=== PATIENT | male | born 1960 | race Caucasian/White ===

== ENCOUNTER 2019-04-02 23:33 | Emergency (ER) | payer MEDICAID ==
--- NOTE | 2019-04-03 00:14 | ED Physician Chart ---
ED Chief Complaint/HPI - Patient Information Date Seen:: 04/03/19 Time Seen:: 00:09 Chief Complaint:: hypoglycemia History of Present Illness:: 59 yr old male with abd pain several days no vomitiing pt refuses help Allergies:: Allergies Allergy/AdvReac Type Severity Reaction Status Date / Time No Known Allergies Allergy Verified 04/02/19 23:43 Vitals:: Vital Signs - 8 hr 04/02/19 23:40 Temp 97.9 F HR 84 RR 20 BP 189/98 O2 Sat % 99 ED Review of Systems - Review of Systems General/Constitutional: No fever Skin: Skin lesions Head: Headache Eyes: No loss of vision ENT: No earache Neck: No neck pain Cardio Vascular: No chest pain Pulmonary: No SOB GI: No nausea, No vomiting, Pain G/U: No dysuria Musculoskeletal: No bone or joint pain Endocrine: No polyuria Psychiatric: No prior psych history Hematopoietic: No bruising Allergic/Immuno: No urticaria ED Past Medical History - Past Medical History Past Medical History: Other (gallstones) Family Medical History - Family Member Mother History Unknown: Yes ED Physical Exam - Physical Examination General/Constitutional: Well-developed, well-nourished Other Gen/Cons comments:: much abd pain ruq Head: Atraumatic Eyes: Lids, conjuctiva normal Skin: Nl inspection ENMT: External ears, nose nl Neck: Nontender Respiratory: Nl effort/Exclusion Cardio Vascular: RRR Other GI comments:: much tenderness ruq : No CVA tenderness Extremities: normal strength in all extremities Neuro/Psych: Alert/oriented ED Assessment - Assessment General Assessment: gallstones abd pain ED Septic Shock - . Is Septic Shock (SBP<90, OR Lactate>4 mmol\L) present?: No - <6hrs of presentation: Vital Signs: Vital Signs - 8 hr 04/02/19 23:40 Temp 97.9 F HR 84 RR 20 BP 189/98 O2 Sat % 99 ED Reassessment (Disposition) - Reassessment Reassessment:: billiary colic - Diagnosis Diagnosis:: abd pain - Patient Disposition Discharge/Transfer:: Home Condition at Disposition:: Stable
[2019-04-03] MEDS ORDERED: Morphine Sulfate 4 mg/mL 1mL Syr ONE (00:17)
[2019-04-03] MEDS ORDERED: Morphine Sulfate 4 mg/mL 1mL Syr IVP STA (00:19)
[2019-04-03] MEDS ORDERED: Lactated Ringer 1,000 ML IV SCH (00:30)
[2019-04-03] MEDS ORDERED: cefTRIAXone 2 GM in Sodium Chloride 0.9% 100 ML IV SCH (00:30)
[2019-04-03 00:35] LABS: % BASOPHILS 0.6 % (0.0-2.0); % EOSINOPHILS 5.9 % (0.0-5.0); % LYMPHOCYTES 24.8 % (20.0-50.0); % MONOCYTES 6.9 % (2.0-10.0); % NEUTROPHILS 61.8 % (40.0-80.0); EOSINOPHILE ABSOLUTE 0.5 Th/cmm (0.1-0.4); HEMATOCRIT 42.9 % (41.0-60); HEMOGLOBIN 13.9 gm/dL (12-16); MEAN CELL VOLUME 91.6 fl (80-99); MEAN CORPUSCULAR HEMOGLOBIN 29.7 pg (26.0-30.0); MEAN CORPUSCULAR HGB CONC 32.4 pg (28.0-36.0); MONOCYTE ABSOLUTE 0.6 Th/cmm (0.3-1.0); PLATELET COUNT 250 Th/cmm (150-400); RED BLOOD COUNT 4.68 Mil/cmm (4.30-5.70); RED CELL DISTRIBUTION WIDTH 13.2 % (11.5-20.0); WHITE BLOOD COUNT 8.1 Th/cmm (4.8-10.8)
[2019-04-03 00:44] LABS: ALB/GLOB RATIO 1.2 (1.0-1.8); ALBUMIN 3.9 gm/dL (4.2-5.5); ALKALINE PHOSPHATASE 62 U/L (34-104); AMYLASE SERUM 52 U/L (29-103); ANION GAP 11.5 (7.0-16.0); BILIRUBIN,TOTAL 0.6 mg/dL (0.3-1.0); BUN - UREA NITROGEN 17 mg/dL (7-25); CALCIUM SERUM 8.9 mg/dL (8.6-10.3); CARBON DIOXIDE 26.7 mEq/L (21.0-31.0); CHLORIDE 104 mEq/L (98-107); CREATININE - SERUM 0.7 mg/dL (0.7-1.3); GFR AFRICAN-AMERICAN > 60.0 ml/min (>90); GFR NON AFRICAN-AMERICAN > 60.0 ml/min; GLUCOSE 176 mg/dL (70-105); LIPASE 25 U/L (11-82); POTASSIUM SERUM 3.2 mEq/L (3.5-5.1); SGOT 15 U/L (13-39); SGPT/ALT 36 U/L (7-52); SODIUM SERUM 139 mEq/L (136-145); TOTAL PROTEIN,SERUM 7.2 gm/dL (6.0-8.3)
[2019-04-03] MEDS ORDERED: HYDROmorphone 2 mg/mL 1mL Vial IVP STA (01:24)
[2019-04-03] MEDS ORDERED: HYDROmorphone 2 mg/mL 1mL Vial ONE (01:26)
== END 2019-04-03 02:20 | disposition left against medical advice (07) ==
LOC: ER 23:33
DX: K80.50 Calculus of bile duct without cholangitis or cholecystitis without obstruction (principal); R10.11 Right upper quadrant pain
CPT/HCPCS: 99283; 36415; 83605; 85025; 82150; 83690; 80053; 87040 ×2; 96365; 96375; J1885; J2405; J0696; J7040; J1170; J7030; Z7502